=== PATIENT | male | born 1990 | race Caucasian/White ===

== ENCOUNTER 2024-01-13 19:57 | Emergency (ER) | payer OTHER ==
[~2024-01-13] VITALS: Ht 170.2 cm; Wt 100.0 kg
[2024-01-13] MEDS ORDERED: BACTROBAN 22GM22 GM TP (21:08)
[2024-01-13 21:19] VITALS: BP 133/82; PULSE 88; TEMP 98.2
== END 2024-01-13 21:19 | disposition home or self-care (01) ==
LOC: COL.ER 19:57
DX: S50.02XA Contusion of left elbow, initial encounter (principal); S00.93XA Contusion of unspecified part of head, initial encounter; S80.812A Abrasion, left lower leg, initial encounter; V28.49XA Other motorcycle driver injured in noncollision transport accident in traffic accident, initial encounter; Y93.55 Activity, bike riding; Y92.410 Unspecified street and highway as the place of occurrence of the external cause